=== PATIENT | female | born 1990 | race Caucasian/White ===

== ENCOUNTER 2022-06-26 08:07 | Emergency (ER) | payer OTHER ==
[~2022-06-26] VITALS: Ht 162.6 cm; Wt 106.2 kg
[2022-06-26] MEDS ORDERED: LEVOTHYROXINE100 MC1 PO (09:29)
[2022-06-26] MEDS ORDERED: TUMS ULTRA400 MG PO (09:29)
[2022-06-26] MEDS ORDERED: CALCITRIOL0.5 MCG PO (09:29)
[2022-06-26] MEDS ORDERED: VITAMIN D3125 MCG (09:29)
[2022-06-26] MEDS: IBUPROFEN 400 MG TAB PO ONE ×2 (10:25→10:27)
[2022-06-26] MEDS ORDERED: KETOROLAC TROME10 MG PO (10:27)
[2022-06-26] MEDS ORDERED: LASIX20 MG PO (10:36)
[2022-06-26] MEDS ORDERED: IBUPROFEN 400 MG TAB ONE (10:39)
== END 2022-06-26 10:44 | disposition home or self-care (01) ==
LOC: FSED 08:13
DX: R60.9 Edema, unspecified (principal); E83.51 Hypocalcemia; E03.9 Hypothyroidism, unspecified
CPT/HCPCS: 80053; 81003; 81025; 83880; 85025; 99283

== ENCOUNTER 2025-05-09 15:37 | Inpatient (IN) | payer OTHER ==
[~2025-05-09] VITALS: Ht 162.6 cm; Wt 108.9 kg
[~2025-05-09 15:37] MED LIST: AMOXICILLIN500 MG PO; BENZONATATE200 MG PO; CALCITRIOL0.5 MCG PO; DELSYM30 MG/5 M1 PO; DOCUSATE SODIU100 MG PO; FERROUS SULFAT325 MG PO; KETOROLAC TROME10 MG PO; LASIX20 MG PO; LEVOTHYROXINE100 MC1 PO; METHOCARBAMOL500 MG PO; NAPROXEN500 MG PO; TUMS ULTRA400 MG PO; VITAMIN D3125 MCG
[2025-05-09 15:49] VITALS: TEMP 98
[2025-05-09 16:45] LABS: BASOPHILS % 0.4 % (0.0-1.0); EOSINOPHILS % 1.2 % (0.0-6.0); LYMPHOCYTES % 27.0 % (18.0-39.1); MONOCYTES % 6.1 % (4.4-11.3); NEUTROPHILS % 65.1 % (38.7-80.0); RED CELL DISTRIBUTION WIDTH 15.1 % (11.7-14.4)
[2025-05-09 17:07] VITALS: PULSE 96; RESP 20
[2025-05-09 17:10] LABS: EST GLOMERULAR FILTRATION RATE 98.0 ML/MIN (>=60)
[2025-05-09] MEDS ORDERED: ONDANSETRON HCL INJ 2MG/ML 2ML 2 MG/ML VIAL IV PRN (17:30)
[2025-05-09] MEDS ORDERED: SODIUM CHLORIDE FLUSH 10 ML SYR INJ PRN (17:30)
[2025-05-09] MEDS: CALCIUM GLUC 1 G/50 ML NACL 100 ML IV ONE (17:34)
[2025-05-09 20:45] VITALS: BP 112/70; PULSE 76; RESP 16; O2SAT 100
[2025-05-09 21:00] VITALS: BP 101/79; PULSE 76; RESP 18; TEMP 98; O2SAT 100
[2025-05-09 21:46] VITALS: BP 114/93; PULSE 78; RESP 19; O2SAT 100
[2025-05-09 23:00] VITALS: BP 118/75; PULSE 75; RESP 28; TEMP 98.2; O2SAT 100
[2025-05-10] VITALS (17 sets, daily range): BP systolic 100–137; BP diastolic 70–110; PULSE 67–90; RESP 11–19; TEMP 97.9–98.4; O2SAT 99–100
[2025-05-10 05:10] LABS: BASOPHILS % 0.3 % (0.0-1.0); EOSINOPHILS % 1.4 % (0.0-6.0); LYMPHOCYTES % 33.4 % (18.0-39.1); MONOCYTES % 7.3 % (4.4-11.3); NEUTROPHILS % 57.3 % (38.7-80.0); RED CELL DISTRIBUTION WIDTH 15.1 % (11.7-14.4)
[2025-05-10 05:39] LABS: EST GLOMERULAR FILTRATION RATE 104.0 ML/MIN (>=60)
[2025-05-10] MEDS ORDERED: CALCIUM GLUC 1 G/50 ML NACL 100 ML IV ONE (06:00)
[2025-05-10] MEDS: CALCIUM GLUC 1 G/50 ML NACL 50 ML IV SCH (06:19)
[2025-05-10] MEDS ORDERED: DOCUSATE SODIUM 100 MG CAP PO PRN (07:45)
[2025-05-10] MEDS ORDERED: ACETAMINOPHEN 325 MG TAB PO PRN (07:45)
[2025-05-10] MEDS ORDERED: METOPROLOL TARTRATE INJ 1 MG/ML VIAL IV PRN (07:45)
[2025-05-10] MEDS ORDERED: ALBUTEROL/IPRATROPIUM 3 ML NEB NEB PRN (07:45)
[2025-05-10 08:20] LABS: CHOL/HDL RATIO 4.3 (3.0-3.6); LDL CHOLESTEROL 78.0 MG/DL (60-130)
[2025-05-10 08:53] LABS: % IRON SATURATION 9.0 % (15-50)
[2025-05-10] MEDS: DOCUSATE SODIUM 100 MG CAP PO SCH (09:00)
[2025-05-10] MEDS: CALCIUM CARBONATE 500 MG CHEWABLE TABS PO SCH ×2 (09:23→20:15)
[2025-05-10] MEDS: CALCITRIOL 0.25 MCG CAP PO SCH (09:23)
[2025-05-10] MEDS: MUPIROCIN 2% OINT 22 GM TUBE TOP SCH (09:23)
[2025-05-10] MEDS: FERROUS SULFATE 325 MG TAB PO SCH (09:24)
[2025-05-10] MEDS: CALCIUM GLUCONATE 10% INJ 9.3 MEQ in SODIUM CHLORIDE 0.9% 250ML 250 ML IV SCH (10:54)
[2025-05-11] VITALS (11 sets, daily range): BP systolic 103–131; BP diastolic 69–97; PULSE 61–76; RESP 12–21; TEMP 97.8–98.7; O2SAT 98–100
[2025-05-11] MEDS: MELATONIN 3 MG TAB PO PRN (00:23)
[2025-05-11] MEDS ORDERED: LEVOTHYROXINE SODIUM 100 MCG TAB PO SCH (06:00)
[2025-05-11] MEDS: LEVOTHYROXINE SODIUM 100 MCG TAB PO SCH (06:12)
[2025-05-11 07:07] LABS: EST GLOMERULAR FILTRATION RATE 111.0 ML/MIN (>=60)
[2025-05-11] MEDS: CALCITRIOL 0.25 MCG CAP PO SCH (09:11)
== END 2025-05-11 15:15 | disposition home or self-care (01) | DRG 641 ==
LOC: ER 16:02 → ERHOLD 17:32 → UNDOADMIN 17:32 → ICU 20:42
PROVIDERS: ADMIT Internal Medicine; ATTEND Internal Medicine
DX: E83.51 Hypocalcemia (principal); E66.01 Morbid (severe) obesity due to excess calories; Z68.41 Body mass index [BMI] 40.0-44.9, adult; E89.0 Postprocedural hypothyroidism; D50.9 Iron deficiency anemia, unspecified; Z79.890 Hormone replacement therapy; Z88.1 Allergy status to other antibiotic agents; Z88.8 Allergy status to other drugs, medicaments and biological substances
CPT/HCPCS: 36415; 80048; 80053; 80061; 82310; 82607; 82728; 83036; 83540; 84443; 84466; 85025; 93005; 94799; 99252; 99284; J0612; J7050